=== PATIENT | male | born 1990 | race African-American/Black ===

== ENCOUNTER 2017-11-10 09:33 | Inpatient (IN) ==
[2017-11-10] MEDS ORDERED: ONDANSETRON 4 MG/2 ML VIAL IV STA (10:35)
[2017-11-10] MEDS ORDERED: SODIUM CHLORIDE 0.9% 1,000 ML IV STA (10:35)
[2017-11-10] MEDS ORDERED: MORPHINE 4 MG/1 ML VIAL IV STA (10:35)
[2017-11-10] MEDS ORDERED: ONDANSETRON 4 MG/2 ML VIAL ONE (10:41)
[2017-11-10] MEDS ORDERED: MORPHINE 4 MG/1 ML VIAL ONE (10:41)
[2017-11-10 10:51] LABS: Apearance,Urine Slightly Hazy (Clear); Bacteria,Urine Occasional /HPF (Few); Blood, Urine Negative (Negative); Glucose,Urine (UA) Negative (Negative); Ketones,Urine Negative (Negative); Mucus,Urine Many /LPF (Occasional); Nitrite,Urine Negative (Negative); Protein,Urine 100 MG/DL; Squamous Epithelial Cell,Urine Occasional /HPF (0-10); Urine Color Amber (Yellow); Urine Specific Gravity 1.029 (1.001-1.035); WBC,Urine 5 /HPF (0-6)
[2017-11-10 10:54] LABS: Bilirubin,Urine Small mg/dL (Negative)
[2017-11-10 10:57] LABS: Barbiturates Screen,Urine Negative (Negative); Benzodiazepines Screen,Urine Negative (Negative); Cannabinoid Screen,Urine Negative (Negative); Opiate Screen,Urine Negative (Negative); Phencyclidine Screen,Urine Negative (Negative)
[2017-11-10 10:59] LABS: Basophils # 0.1 10*3/uL (0.0-0.2); Basophils % 0.6 % (0.0-0.8); Eosinophils # 0.1 10*3/uL (0.0-0.87); Eosinophils % 0.8 % (0.00-10.9); Hematocrit 33.5 VOL% (42.0-52.0); Hemoglobin 10.6 GM/DL (14.0-18.0); Immature Granulocytes % 0.5 %; Immature Granulocytes Absolute 0.04 #; Lymphocytes # 0.7 10*3/uL (1.4-4.0); Lymphocytes % 8.6 % (21.2-54.2); Mean Corpuscular HGB Conc 31.6 GM/DL (32-36); Mean Corpuscular Hemoglobin 28 PG (27-34); Mean Corpuscular Volume 88.6 FL (87-102); Mean Platelet Volume 9.5 FL (9.6-12.0); Monocytes # 0.4 10*3/uL (0.11-0.8); Monocytes % 4.8 % (1.7-12.7); Neutrophils # 6.7 10*3/uL (1.4-7.4); Neutrophils % 84.7 % (38.7-73.9); Platelet Count 400 T/CUMM (130-400); Red Blood Count 3.78 MC/CUMM (3.8-5.5); Red Cell Distribution Width 13.5 % (9.3-17.3); White Blood Count 7.9 T/CUMM (4-12)
[2017-11-10 11:25] LABS: Alanine Aminotransferase 33 U/L (16-61); Albumin 2.7 G/DL (3.4-5.0); Alkaline Phosphatase 250 U/L (45-117); Amylase 52 U/L (25-115); Aspartate Amino Transferase 55 U/L (0-37); Blood Urea Nitrogen 4 MG/DL (7-18); Calcium 9.1 MG/DL (8.5-10.1); Glucose 102 MG/DL (74-106); Osmolality,Calculated 269.8 MOS/KG (273-304); Potassium 3.7 MMOL/L (3.5-5.1); Sodium 137 MMOL/L (136-145); Total Protein 8.4 G/DL (6.4-8.3)
[2017-11-10 11:29] LABS: Lactic Acid 2.7 MMOL/L (0.4-2.0)
[2017-11-10] MEDS ORDERED: ZALEPLON 5 MG CAPSULE PO PRN (13:40)
[2017-11-10] MEDS ORDERED: ONDANSETRON 4 MG/2 ML VIAL IV PRN (13:40)
[2017-11-10] MEDS: SODIUM CHLORIDE 0.9% 1,000 ML IV SCH (15:24)
[2017-11-10 15:50] LABS: Lactic Acid 2.2 MMOL/L (0.4-2.0)
[2017-11-10] MEDS: DOCUSATE SODIUM 100 MG CAPSULE PO SCH (21:45)
[2017-11-11] MEDS: SODIUM CHLORIDE 0.9% 1,000 ML IV SCH ×3 (01:18→22:24)
[2017-11-11 05:02] LABS: Basophils # 0.1 10*3/uL (0.0-0.2); Basophils % 0.8 % (0.0-0.8); Eosinophils # 0.3 10*3/uL (0.0-0.87); Eosinophils % 3.8 % (0.00-10.9); Hematocrit 25.5 VOL% (42.0-52.0); Hemoglobin 8.1 GM/DL (14.0-18.0); Immature Granulocytes % 0.5 %; Immature Granulocytes Absolute 0.03 #; Lymphocytes # 0.9 10*3/uL (1.4-4.0); Lymphocytes % 14.1 % (21.2-54.2); Mean Corpuscular HGB Conc 31.8 GM/DL (32-36); Mean Corpuscular Hemoglobin 28 PG (27-34); Mean Corpuscular Volume 88.9 FL (87-102); Mean Platelet Volume 9.4 FL (9.6-12.0); Monocytes # 0.7 10*3/uL (0.11-0.8); Monocytes % 10.6 % (1.7-12.7); Neutrophils # 4.6 10*3/uL (1.4-7.4); Neutrophils % 70.2 % (38.7-73.9); Platelet Count 315 T/CUMM (130-400); Red Blood Count 2.87 MC/CUMM (3.8-5.5); Red Cell Distribution Width 13.5 % (9.3-17.3); White Blood Count 6.6 T/CUMM (4-12)
[2017-11-11 05:29] LABS: Calcium 8.2 MG/DL (8.5-10.1); Osmolality,Calculated 271.7 MOS/KG (273-304); Potassium 3.8 MMOL/L (3.5-5.1)
[2017-11-11] MEDS: PANTOPRAZOLE 40 MG TABLET PO SCH (09:21)
[2017-11-11] MEDS: DOCUSATE SODIUM 100 MG CAPSULE PO SCH ×2 (09:22→21:15)
[2017-11-11 10:52] LABS: INR 1.3; PT Patient Result 13.1 SECS; PT Patient Result 13.2 SECS; Partial Thromboplastin Time 31.1 SECS (0-40)
[2017-11-11] MEDS ORDERED: DIAZEPAM 5 MG TABLET PO ONE (11:10)
[2017-11-11 11:16] LABS: AFP Tumor < 1.3 NG/ML (0-8)
[2017-11-12] MEDS: SODIUM CHLORIDE 0.9% 1,000 ML IV SCH ×2 (08:31→18:32)
[2017-11-12] MEDS: DOCUSATE SODIUM 100 MG CAPSULE PO SCH ×2 (09:09→21:00)
[2017-11-12] MEDS: PANTOPRAZOLE 40 MG TABLET PO SCH (09:09)
[2017-11-13] MEDS: SODIUM CHLORIDE 0.9% 1,000 ML IV SCH (04:12)
[2017-11-13] MEDS: PANTOPRAZOLE 40 MG TABLET PO SCH (08:47)
[2017-11-13] MEDS: DOCUSATE SODIUM 100 MG CAPSULE PO SCH ×2 (08:47→21:09)
[2017-11-13] MEDS ORDERED: cefTRIAXone 1,000 MG in SYRINGE 1 EACH IV ONE (16:19)
[2017-11-14] MEDS: ACETAMINOPHEN 325 MG TABLET PO PRN ×2 (03:40→17:47)
[2017-11-14 06:01] LABS: Basophils % 0.5 % (0.0-0.8); Eosinophils # 0.2 10*3/uL (0.0-0.87); Eosinophils % 2.6 % (0.00-10.9); Hematocrit 25.7 VOL% (42.0-52.0); Hemoglobin 8.5 GM/DL (14.0-18.0); Immature Granulocytes % 0.5 %; Immature Granulocytes Absolute 0.03 #; Lymphocytes # 0.8 10*3/uL (1.4-4.0); Mean Corpuscular HGB Conc 33.1 GM/DL (32-36); Mean Corpuscular Hemoglobin 27 PG (27-34); Mean Corpuscular Volume 82.9 FL (87-102); Mean Platelet Volume 9.5 FL (9.6-12.0); Monocytes # 1.1 10*3/uL (0.11-0.8); Monocytes % 17.2 % (1.7-12.7); NRBC # 0.02 10*3/uL; Neutrophils # 4.1 10*3/uL (1.4-7.4); Neutrophils % 66.2 % (38.7-73.9); Platelet Count 357 T/CUMM (130-400); White Blood Count 6.2 T/CUMM (4-12)
[2017-11-14 06:16] LABS: Albumin 2.2 G/DL (3.4-5.0); Bilirubin,Total 0.7 MG/DL (0.2-1.0); Calcium 8.8 MG/DL (8.5-10.1); Potassium 3.1 MMOL/L (3.5-5.1); Total Protein 7.5 G/DL (6.4-8.3)
[2017-11-14 06:25] LABS: Band Neutrophils 1 % (0-10); Eosinophils 5 % (0-10); Hypochromasia 2+; Lymphocytes 9 % (20-55); Macrocytosis 1+; Platelet Estimate Adequate; Polychromasia Slight; Segmented Neutrophils 72 % (50-85); Target Cells Slight; Total Cells Counted 100
[2017-11-14] MEDS: DOCUSATE SODIUM 100 MG CAPSULE PO SCH ×2 (09:20→21:27)
[2017-11-14] MEDS: PANTOPRAZOLE 40 MG TABLET PO SCH (09:20)
[2017-11-14] MEDS: POTASSIUM CHLORIDE 20 MEQ TABLET PO SCH (21:30)
[2017-11-15 05:44] LABS: Calcium 9.3 MG/DL (8.5-10.1); Osmolality,Calculated 270.8 MOS/KG (273-304); Potassium 3.6 MMOL/L (3.5-5.1)
[2017-11-15] MEDS: DOCUSATE SODIUM 100 MG CAPSULE PO SCH ×2 (09:57→20:32)
[2017-11-15] MEDS: POTASSIUM CHLORIDE 20 MEQ TABLET PO SCH ×2 (09:57→20:32)
[2017-11-15] MEDS: PANTOPRAZOLE 40 MG TABLET PO SCH (09:57)
[2017-11-16] MEDS: PANTOPRAZOLE 40 MG TABLET PO SCH (08:38)
[2017-11-16] MEDS: DOCUSATE SODIUM 100 MG CAPSULE PO SCH ×2 (08:38→20:11)
[2017-11-16] MEDS: POTASSIUM CHLORIDE 20 MEQ TABLET PO SCH (08:39)
[2017-11-16 18:37] LABS: Apearance,Urine CLEAR (Clear); Bilirubin,Urine Negative (Negative); Blood, Urine Negative (Negative); Glucose,Urine (UA) Negative (Negative); Ketones,Urine Negative (Negative); Mucus,Urine Occasional /LPF (Occasional); Nitrite,Urine Negative (Negative); Protein,Urine Negative; RBC,Urine 4 /HPF (0-4); Urine Color Yellow (Yellow); Urine Specific Gravity 1.017 (1.001-1.035); WBC,Urine 1 /HPF (0-6)
[2017-11-16] MEDS: cefTRIAXone 2,000 MG in SYRINGE 1 EACH IV SCH (19:05)
[2017-11-17 06:49] LABS: Basophils % 0.4 % (0.0-0.8); Eosinophils # 0.2 10*3/uL (0.0-0.87); Eosinophils % 2.6 % (0.00-10.9); Hematocrit 25.2 VOL% (42.0-52.0); Hemoglobin 8.3 GM/DL (14.0-18.0); Immature Granulocytes % 0.6 %; Immature Granulocytes Absolute 0.06 #; Lymphocytes # 0.9 10*3/uL (1.4-4.0); Lymphocytes % 10.1 % (21.2-54.2); Mean Corpuscular HGB Conc 32.9 GM/DL (32-36); Mean Corpuscular Hemoglobin 27 PG (27-34); Mean Corpuscular Volume 82.9 FL (87-102); Monocytes # 0.9 10*3/uL (0.11-0.8); NRBC # 0.02 10*3/uL; Neutrophils # 7.1 10*3/uL (1.4-7.4); Neutrophils % 76.3 % (38.7-73.9); Platelet Count 393 T/CUMM (130-400); Red Blood Count 3.04 MC/CUMM (3.8-5.5); Red Cell Distribution Width 14.3 % (9.3-17.3); White Blood Count 9.2 T/CUMM (4-12)
[2017-11-17 07:22] LABS: Calcium 9.1 MG/DL (8.5-10.1); Osmolality,Calculated 262.4 MOS/KG (273-304); Potassium 3.7 MMOL/L (3.5-5.1)
[2017-11-17] MEDS: BISACODYL 5 MG TABLET PO PRN (08:49)
[2017-11-17] MEDS: PANTOPRAZOLE 40 MG TABLET PO SCH (08:49)
[2017-11-17] MEDS: DOCUSATE SODIUM 100 MG CAPSULE PO SCH ×2 (08:50→21:10)
[2017-11-17] MEDS ORDERED: MAGNESIUM SULF RIDER 2 GM in PREMIX 1 EACH IV ONE (11:04)
[2017-11-17] MEDS: cefTRIAXone 2,000 MG in SYRINGE 1 EACH IV SCH (19:18)
[2017-11-18] MEDS: PANTOPRAZOLE 40 MG TABLET PO SCH (09:07)
[2017-11-18] MEDS: DOCUSATE SODIUM 100 MG CAPSULE PO SCH ×2 (10:38→20:41)
[2017-11-18] MEDS: cefTRIAXone 2,000 MG in SYRINGE 1 EACH IV SCH (17:54)
[2017-11-19] MEDS: PANTOPRAZOLE 40 MG TABLET PO SCH (09:22)
[2017-11-19] MEDS: DOCUSATE SODIUM 100 MG CAPSULE PO SCH ×2 (09:22→20:24)
[2017-11-19] MEDS: BISACODYL 5 MG TABLET PO PRN (11:23)
[2017-11-19] MEDS: cefTRIAXone 2,000 MG in SYRINGE 1 EACH IV SCH (18:17)
[2017-11-20 06:08] LABS: Basophils # 0.1 10*3/uL (0.0-0.2); Basophils % 0.6 % (0.0-0.8); Eosinophils # 0.2 10*3/uL (0.0-0.87); Hematocrit 26.2 VOL% (42.0-52.0); Hemoglobin 8.3 GM/DL (14.0-18.0); Immature Granulocytes % 0.8 %; Immature Granulocytes Absolute 0.06 #; Lymphocytes # 1.1 10*3/uL (1.4-4.0); Lymphocytes % 13.6 % (21.2-54.2); Mean Corpuscular HGB Conc 31.7 GM/DL (32-36); Mean Corpuscular Hemoglobin 27 PG (27-34); Mean Corpuscular Volume 85.9 FL (87-102); Mean Platelet Volume 9.7 FL (9.6-12.0); Monocytes # 0.9 10*3/uL (0.11-0.8); Monocytes % 11.5 % (1.7-12.7); Neutrophils # 5.6 10*3/uL (1.4-7.4); Neutrophils % 70.5 % (38.7-73.9); Platelet Count 429 T/CUMM (130-400); Red Blood Count 3.05 MC/CUMM (3.8-5.5); Red Cell Distribution Width 14.4 % (9.3-17.3); White Blood Count 7.9 T/CUMM (4-12)
[2017-11-20 06:30] LABS: Albumin 2.2 G/DL (3.4-5.0); Bilirubin,Total 0.9 MG/DL (0.2-1.0); Calcium 9.3 MG/DL (8.5-10.1); Potassium 3.7 MMOL/L (3.5-5.1); Total Protein 7.8 G/DL (6.4-8.3)
[2017-11-20] MEDS: DOCUSATE SODIUM 100 MG CAPSULE PO SCH ×2 (09:02→21:43)
[2017-11-20] MEDS: PANTOPRAZOLE 40 MG TABLET PO SCH (09:02)
[2017-11-20] MEDS: cefTRIAXone 2,000 MG in SYRINGE 1 EACH IV SCH (17:30)
[2017-11-21] MEDS: PANTOPRAZOLE 40 MG TABLET PO SCH (07:52)
[2017-11-21] MEDS: DOCUSATE SODIUM 100 MG CAPSULE PO SCH (07:52)
[2017-11-21 13:24] VITALS: BP 114/64
== END 2017-11-21 14:15 | disposition home health service (06) | DRG 435 ==
LOC: N.ED 09:33 → N.EDINP 13:40 → SUATTDRO 13:41 → N.4E 14:27
PROVIDERS: ATTEND Internal Medicine Geriatric Medicine

== ENCOUNTER 2017-12-05 09:27 | Inpatient (IN) ==
[2017-12-07 14:37] VITALS: BP 110/68
== END 2017-12-07 13:55 | disposition hospice, home (50) | DRG 240 ==
LOC: N.ED 09:27 → SUATTDRO 12:19 → N.EDINP 12:19 → N.4E 13:28
PROVIDERS: ADMIT Internal Medicine Nephrology; ATTEND Internal Medicine

== ENCOUNTER 2017-12-31 16:25 | Inpatient (IN) ==
[2017-12-31] MEDS ORDERED: chlorproMAZINE 25 MG TABLET PO STA (16:57)
[2017-12-31 17:30] LABS: Albumin 1.7 G/DL (3.4-5.0); Bilirubin,Total 0.9 MG/DL (0.2-1.0); Calcium 8.5 MG/DL (8.5-10.1); Osmolality,Calculated 261.5 MOS/KG (273-304); Potassium 3.4 MMOL/L (3.5-5.1); Total Protein 6.4 G/DL (6.4-8.3)
[2017-12-31 17:44] LABS: Apearance,Urine CLEAR (Clear); Bilirubin,Urine Small mg/dL (Negative); Blood, Urine Negative (Negative); Glucose,Urine (UA) Negative (Negative); Ketones,Urine Negative (Negative); Mucus,Urine Occasional /LPF (Occasional); Nitrite,Urine Negative (Negative); Protein,Urine 30 MG/DL; RBC,Urine 1 /HPF (0-4); Urine Color Amber (Yellow); Urine Specific Gravity 1.024 (1.001-1.035); WBC,Urine 3 /HPF (0-6)
[2017-12-31 17:50] LABS: Barbiturates Screen,Urine Negative (Negative); Benzodiazepines Screen,Urine Negative (Negative); Cannabinoid Screen,Urine Negative (Negative); Opiate Screen,Urine Positive (Negative); Phencyclidine Screen,Urine Negative (Negative)
[2017-12-31 18:07] LABS: Basophils % 0.8 % (0.0-0.8); Hematocrit 24.2 VOL% (42.0-52.0); Hemoglobin 7.7 GM/DL (14.0-18.0); Immature Granulocytes % 1.6 %; Immature Granulocytes Absolute 0.04 #; Lymphocytes # 0.6 10*3/uL (1.4-4.0); Lymphocytes % 24.2 % (21.2-54.2); Mean Corpuscular HGB Conc 31.8 GM/DL (32-36); Mean Corpuscular Hemoglobin 27 PG (27-34); Mean Platelet Volume 9.8 FL (9.6-12.0); Monocytes # 0.9 10*3/uL (0.11-0.8); Monocytes % 36.3 % (1.7-12.7); NRBC # 0.06 10*3/uL; Neutrophils # 0.9 10*3/uL (1.4-7.4); Neutrophils % 37.1 % (38.7-73.9); Platelet Count 255 T/CUMM (130-400); Red Blood Count 2.88 MC/CUMM (3.8-5.5); Red Cell Distribution Width 17.7 % (9.3-17.3); White Blood Count 2.5 T/CUMM (4-12)
[2017-12-31] MEDS ORDERED: PIPERACILLIN/TAZOBACTAM 2,250 MG in SODIUM CHLORIDE 0.9% 100 ML IV STA (18:33)
[2017-12-31] MEDS ORDERED: VANCOMYCIN INJ 1,500 MG in SODIUM CHLORIDE 0.9% 500 ML IV STA (18:33)
[2017-12-31] MEDS ORDERED: SODIUM CHLORIDE 0.9% 1,000 ML IV STA (18:36)
[2017-12-31] MEDS ORDERED: ACETAMINOPHEN 325 MG TABLET PO ONE (18:36)
[2017-12-31] MEDS ORDERED: PIPERACILLIN/TAZOBACTAM 3,375 MG in SODIUM CHLORIDE 0.9% 100 ML IV STA (18:39)
[2017-12-31] MEDS ORDERED: ONDANSETRON 4 MG/2 ML VIAL IV PRN (18:40)
[2017-12-31] MEDS ORDERED: SODIUM CHLORIDE 0.9% 1,000 ML IV PRN ×2 (18:40→18:45)
[2017-12-31] MEDS ORDERED: VANCOMYCIN INJ 1,000 MG in SODIUM CHLORIDE 0.9% 250 ML IV STA (18:41)
[2017-12-31] MEDS ORDERED: ACETAMINOPHEN 650 MG SUPP RECTAL PRN (18:44)
[2017-12-31] MEDS ORDERED: chlorproMAZINE INJ 50 MG in SODIUM CHLORIDE 0.9% 100 ML IV PRN (18:44)
[2017-12-31] MEDS ORDERED: SODIUM CHLORIDE 0.9% 1,650 ML IV ONE (19:43)
[2017-12-31 20:22] LABS: Band Neutrophils 5 % (0-10); Eosinophils 3 % (0-10); Hypochromasia 2+; Lymphocytes 21 % (20-55); Myelocytes 1 %; Nucleated Red Blood Cells 2 (0-5); Segmented Neutrophils 37 % (50-85); Total Cells Counted 100
[2017-12-31 20:23] LABS: Microcytosis 1+; Platelet Estimate Adequate
[2017-12-31] MEDS: SODIUM CHLORIDE 0.9% 1,000 ML IV SCH (20:26)
[2017-12-31] MEDS: CEFEPIME 2,000 MG in SYRINGE 1 EACH IV SCH (21:40)
[2017-12-31] MEDS: POTASSIUM CHLORIDE 20 MEQ TABLET PO SCH (21:40)
[2017-12-31] MEDS: PANTOPRAZOLE 40 MG VIAL IV SCH (21:43)
[2018-01-01] MEDS ORDERED: LORazepam 0.5 MG TABLET PO PRN (00:19)
[2018-01-01] MEDS: POTASSIUM CHLORIDE 20 MEQ TABLET PO SCH ×2 (01:11→05:10)
[2018-01-01] MEDS: SODIUM CHLORIDE 0.9% 1,000 ML IV SCH ×4 (01:16→19:38)
[2018-01-01] MEDS: VANCOMYCIN INJ 1,000 MG in SODIUM CHLORIDE 0.9% 250 ML IV SCH ×3 (03:30→19:38)
[2018-01-01] MEDS ORDERED: PIPERACILLIN/TAZOBACTAM 3,375 MG in SODIUM CHLORIDE 0.9% 100 ML IV SCH (04:00)
[2018-01-01] MEDS: CEFEPIME 2,000 MG in SYRINGE 1 EACH IV SCH ×3 (05:11→21:06)
[2018-01-01 06:35] LABS: Basophils % 0.4 % (0.0-0.8); Eosinophils % 0.4 % (0.00-10.9); Hematocrit 19.1 VOL% (42.0-52.0); Immature Granulocytes % 1.8 %; Immature Granulocytes Absolute 0.05 #; Lymphocytes # 0.7 10*3/uL (1.4-4.0); Lymphocytes % 23.2 % (21.2-54.2); Mean Corpuscular Hemoglobin 27 PG (27-34); Mean Platelet Volume 9.7 FL (9.6-12.0); Monocytes % 33.8 % (1.7-12.7); NRBC # 0.04 10*3/uL; Neutrophils # 1.2 10*3/uL (1.4-7.4); Neutrophils % 40.4 % (38.7-73.9); Platelet Count 250 T/CUMM (130-400); Red Blood Count 2.33 MC/CUMM (3.8-5.5); Red Cell Distribution Width 18.2 % (9.3-17.3); White Blood Count 2.8 T/CUMM (4-12)
[2018-01-01 06:46] LABS: Hemoglobin 6.3 GM/DL (14.0-18.0)
[2018-01-01 06:57] LABS: Albumin 1.5 G/DL (3.4-5.0); Bilirubin,Total 1.3 MG/DL (0.2-1.0); Calcium 7.9 MG/DL (8.5-10.1); Potassium 3.5 MMOL/L (3.5-5.1); Total Protein 5.8 G/DL (6.4-8.3)
[2018-01-01] MEDS ORDERED: SODIUM CHLORIDE 0.9% 1,000 ML IV PRN (07:02)
[2018-01-01 07:05] LABS: Band Neutrophils 21 % (0-10); Lymphocytes 13 % (20-55); Nucleated Red Blood Cells 4 (0-5); Platelet Estimate Normal; Segmented Neutrophils 41 % (50-85); Total Cells Counted 100
[2018-01-01 07:07] LABS: Anisocytosis 1+; Hypochromasia 1+
[2018-01-01 07:08] LABS: Poikilocytosis Slight; Target Cells Few
[2018-01-01] MEDS ORDERED: fentaNYL 25 MCG/HR PATCH TRANSDERM SCH (09:00)
[2018-01-01] MEDS ORDERED: FILGRASTIM-SNDZ 300 MCG/0.5 ML SYRINGE SUBCUT SCH (09:30)
[2018-01-01] MEDS: PANTOPRAZOLE 40 MG VIAL IV SCH ×2 (09:47→21:04)
[2018-01-01] MEDS: MAGNESIUM CHLORIDE 64 MG TABLET PO SCH ×2 (09:47→21:04)
[2018-01-01] MEDS: chlorproMAZINE 25 MG TABLET PO PRN ×2 (09:55→17:29)
[2018-01-01] MEDS: MORPHINE 4 MG/1 ML VIAL IV PRN (17:29)
[2018-01-02] MEDS: VANCOMYCIN INJ 1,000 MG in SODIUM CHLORIDE 0.9% 250 ML IV SCH (03:20)
[2018-01-02] MEDS: SODIUM CHLORIDE 0.9% 1,000 ML IV SCH (03:23)
[2018-01-02] MEDS: CEFEPIME 2,000 MG in SYRINGE 1 EACH IV SCH ×3 (05:12→20:15)
[2018-01-02 05:17] LABS: Basophils % 0.3 % (0.0-0.8); Eosinophils % 0.1 % (0.00-10.9); Hematocrit 24.4 VOL% (42.0-52.0); Hemoglobin 8.2 GM/DL (14.0-18.0); Immature Granulocytes % 6.2 %; Immature Granulocytes Absolute 0.64 #; Lymphocytes # 1.1 10*3/uL (1.4-4.0); Lymphocytes % 10.7 % (21.2-54.2); Mean Corpuscular HGB Conc 33.6 GM/DL (32-36); Mean Corpuscular Hemoglobin 27 PG (27-34); Mean Corpuscular Volume 81.6 FL (87-102); Mean Platelet Volume 9.5 FL (9.6-12.0); Monocytes % 19.6 % (1.7-12.7); NRBC # 0.29 10*3/uL; Neutrophils # 6.5 10*3/uL (1.4-7.4); Neutrophils % 63.1 % (38.7-73.9); Platelet Count 280 T/CUMM (130-400); Red Blood Count 2.99 MC/CUMM (3.8-5.5); Red Cell Distribution Width 17.3 % (9.3-17.3); White Blood Count 10.3 T/CUMM (4-12)
[2018-01-02 05:36] LABS: Albumin 1.5 G/DL (3.4-5.0); Bilirubin,Total 1.4 MG/DL (0.2-1.0); Calcium 8.2 MG/DL (8.5-10.1); Osmolality,Calculated 268.8 MOS/KG (273-304); Total Protein 5.9 G/DL (6.4-8.3)
[2018-01-02 05:38] LABS: Band Neutrophils 15 % (0-10); Eosinophils 1 % (0-10); Hypochromasia 1+; Lymphocytes 18 % (20-55); Nucleated Red Blood Cells 3 (0-5); Platelet Estimate Adequate; Segmented Neutrophils 52 % (50-85); Total Cells Counted 100
[2018-01-02] MEDS ORDERED: MAGNESIUM SULF RIDER 4 GM in PREMIX 1 EACH IV ONE (09:00)
[2018-01-02] MEDS: SODIUM CHLOR 0.45% KCL 20 MEQ 20 MEQ/1,000 ML BAG IV SCH (09:20)
[2018-01-02] MEDS: MAGNESIUM CHLORIDE 64 MG TABLET PO SCH ×2 (09:20→20:17)
[2018-01-02] MEDS: PANTOPRAZOLE 40 MG VIAL IV SCH ×2 (09:20→20:14)
[2018-01-02] MEDS: MORPHINE 4 MG/1 ML VIAL IV PRN ×2 (12:12→20:10)
[2018-01-03] MEDS: SODIUM CHLOR 0.45% KCL 20 MEQ 20 MEQ/1,000 ML BAG IV SCH (02:54)
[2018-01-03 05:13] LABS: Basophils # 0.1 10*3/uL (0.0-0.2); Basophils % 0.4 % (0.0-0.8); Eosinophils % 0.1 % (0.00-10.9); Hematocrit 25.1 VOL% (42.0-52.0); Hemoglobin 8.4 GM/DL (14.0-18.0); Immature Granulocytes % 10.6 %; Immature Granulocytes Absolute 1.79 #; Lymphocytes # 1.2 10*3/uL (1.4-4.0); Lymphocytes % 7.3 % (21.2-54.2); Mean Corpuscular HGB Conc 33.5 GM/DL (32-36); Mean Corpuscular Hemoglobin 28 PG (27-34); Mean Corpuscular Volume 83.4 FL (87-102); Mean Platelet Volume 9.5 FL (9.6-12.0); Monocytes # 2.1 10*3/uL (0.11-0.8); Monocytes % 12.2 % (1.7-12.7); NRBC # 0.12 10*3/uL; Neutrophils # 11.7 10*3/uL (1.4-7.4); Neutrophils % 69.4 % (38.7-73.9); Platelet Count 318 T/CUMM (130-400); Red Blood Count 3.01 MC/CUMM (3.8-5.5); Red Cell Distribution Width 17.7 % (9.3-17.3); White Blood Count 16.8 T/CUMM (4-12)
[2018-01-03] MEDS: CEFEPIME 2,000 MG in SYRINGE 1 EACH IV SCH ×3 (05:28→20:32)
[2018-01-03 05:37] LABS: Osmolality,Calculated 265.1 MOS/KG (273-304)
[2018-01-03 05:38] LABS: Band Neutrophils 17 % (0-10); Calcium 8.1 MG/DL (8.5-10.1); Hypochromasia 1+; Lymphocytes 7 % (20-55); Osmolality,Calculated 265.1 MOS/KG (273-304); Ovalocytes Slight; Platelet Estimate Adequate; Segmented Neutrophils 68 % (50-85); Total Cells Counted 100
[2018-01-03 05:55] LABS: Albumin 1.5 G/DL (3.4-5.0); Bilirubin,Total 1.2 MG/DL (0.2-1.0); Osmolality,Calculated 263.2 MOS/KG (273-304); Total Protein 5.8 G/DL (6.4-8.3)
[2018-01-03] MEDS ORDERED: MAGNESIUM SULF RIDER 2 GM in PREMIX 1 EACH IV ONE (07:33)
[2018-01-03] MEDS: MAGNESIUM CHLORIDE 64 MG TABLET PO SCH ×2 (08:29→20:35)
[2018-01-03] MEDS: PANTOPRAZOLE 40 MG VIAL IV SCH ×2 (08:29→20:30)
[2018-01-03] MEDS ORDERED: fentaNYL 50 MCG/HR PATCH TRANSDERM SCH (10:00)
[2018-01-03] MEDS: POTASSIUM CHLORIDE 20 MEQ TABLET PO SCH (10:34)
[2018-01-03] MEDS: POTASSIUM CHLORIDE RIDER 10 MEQ in PREMIX 1 EACH IV PRN ×5 (12:25→19:29)
[2018-01-04] MEDS: CEFEPIME 2,000 MG in SYRINGE 1 EACH IV SCH (04:06)
[2018-01-04] MEDS: SODIUM CHLOR 0.45% KCL 20 MEQ 20 MEQ/1,000 ML BAG IV SCH (04:09)
[2018-01-04 05:26] LABS: Basophils # 0.1 10*3/uL (0.0-0.2); Basophils % 0.6 % (0.0-0.8); Hematocrit 28.2 VOL% (42.0-52.0); Hemoglobin 9.4 GM/DL (14.0-18.0); Immature Granulocytes % 9.3 %; Immature Granulocytes Absolute 1.99 #; Lymphocytes # 1.2 10*3/uL (1.4-4.0); Lymphocytes % 5.8 % (21.2-54.2); Mean Corpuscular HGB Conc 33.3 GM/DL (32-36); Mean Corpuscular Hemoglobin 28 PG (27-34); Mean Corpuscular Volume 83.2 FL (87-102); Mean Platelet Volume 9.3 FL (9.6-12.0); Monocytes # 2.4 10*3/uL (0.11-0.8); Monocytes % 11.4 % (1.7-12.7); NRBC # 0.09 10*3/uL; Neutrophils # 15.6 10*3/uL (1.4-7.4); Neutrophils % 72.9 % (38.7-73.9); Platelet Count 415 T/CUMM (130-400); Red Blood Count 3.39 MC/CUMM (3.8-5.5); Red Cell Distribution Width 18.3 % (9.3-17.3); White Blood Count 21.4 T/CUMM (4-12)
[2018-01-04 05:37] LABS: Albumin 1.8 G/DL (3.4-5.0); Bilirubin,Total 1.3 MG/DL (0.2-1.0); Calcium 8.6 MG/DL (8.5-10.1); Osmolality,Calculated 262.4 MOS/KG (273-304); Potassium 4.2 MMOL/L (3.5-5.1); Total Protein 6.4 G/DL (6.4-8.3)
[2018-01-04 06:00] LABS: Band Neutrophils 9 % (0-10); Lymphocytes 18 % (20-55); Platelet Estimate Normal; Segmented Neutrophils 68 % (50-85); Total Cells Counted 100
[2018-01-04] MEDS ORDERED: MAGNESIUM SULF RIDER 4 GM in PREMIX 1 EACH IV ONE (07:39)
[2018-01-04] MEDS: MAGNESIUM CHLORIDE 64 MG TABLET PO SCH (09:55)
[2018-01-04] MEDS: POTASSIUM CHLORIDE 20 MEQ TABLET PO SCH (09:55)
[2018-01-04] MEDS: PANTOPRAZOLE 40 MG VIAL IV SCH (09:56)
[2018-01-04 15:57] VITALS: BP 121/74
== END 2018-01-04 15:15 | disposition home health service (06) | DRG 660 ==
LOC: N.ED 16:25 → N.EDINP 18:39 → SUATTDRO 18:39 → N.4E 19:40
PROVIDERS: ADMIT Internal Medicine; ATTEND Hospitalist

== ENCOUNTER 2018-02-03 12:55 | Observation (INO) ==
[2018-02-03] MEDS ORDERED: SODIUM CHLORIDE 0.9% 500 ML IV STA (14:07)
[2018-02-03 14:32] LABS: Eosinophils % 0.4 % (0.00-10.9); Hematocrit 21.4 VOL% (42.0-52.0); Hemoglobin 7.2 GM/DL (14.0-18.0); Immature Granulocytes % 1.2 %; Immature Granulocytes Absolute 0.09 #; Lymphocytes # 0.3 10*3/uL (1.4-4.0); Lymphocytes % 3.5 % (21.2-54.2); Mean Corpuscular HGB Conc 33.6 GM/DL (32-36); Mean Corpuscular Hemoglobin 29 PG (27-34); Mean Corpuscular Volume 85.9 FL (87-102); Mean Platelet Volume 10.3 FL (9.6-12.0); Monocytes # 0.7 10*3/uL (0.11-0.8); Monocytes % 8.5 % (1.7-12.7); Neutrophils # 6.6 10*3/uL (1.4-7.4); Neutrophils % 86.4 % (38.7-73.9); Platelet Count 111 T/CUMM (130-400); Red Blood Count 2.49 MC/CUMM (3.8-5.5); Red Cell Distribution Width 20.7 % (9.3-17.3); White Blood Count 7.6 T/CUMM (4-12)
[2018-02-03 14:39] LABS: INR 1.4
[2018-02-03 14:51] LABS: Lactic Acid 2.7 MMOL/L (0.4-2.0)
[2018-02-03 14:52] LABS: Alanine Aminotransferase 45 U/L (16-61); Albumin 1.5 G/DL (3.4-5.0); Alkaline Phosphatase 374 U/L (45-117); Aspartate Amino Transferase 85 U/L (0-37); Blood Urea Nitrogen 9 MG/DL (7-18); Glucose 82 MG/DL (74-106); Osmolality,Calculated 257.8 MOS/KG (273-304); Potassium 4.2 MMOL/L (3.5-5.1); Sodium 130 MMOL/L (136-145); Total Protein 5.8 G/DL (6.4-8.3)
[2018-02-03 15:00] LABS: Band Neutrophils 36 % (0-10); Lymphocytes 2 % (20-55); Segmented Neutrophils 59 % (50-85); Total Cells Counted 100
[2018-02-03 15:01] LABS: Platelet Estimate Normal
[2018-02-03 15:02] LABS: Burr Cells 1+; Hypochromasia 2+
[2018-02-03 15:03] LABS: Anisocytosis 1+
[2018-02-03 15:04] LABS: Polychromasia Slight; Target Cells Few
[2018-02-03] MEDS ORDERED: ONDANSETRON 4 MG/2 ML VIAL IV PRN (17:27)
[2018-02-03] MEDS ORDERED: SODIUM CHLORIDE 0.9% 1,000 ML IV PRN (17:27)
[2018-02-03] MEDS ORDERED: diphenhydrAMINE CAP 25 MG CAPSULE PO PRN (17:27)
[2018-02-03] MEDS ORDERED: SODIUM CHLORIDE 0.9% 1,000 ML IV SCH (17:30)
[2018-02-03] MEDS ORDERED: ONDANSETRON 4 MG TABLET PO PRN (17:33)
[2018-02-03] MEDS ORDERED: ACETAMINOPHEN 325 MG TABLET PO PRN (17:33)
[2018-02-03] MEDS ORDERED: DOCUSATE SODIUM 100 MG CAPSULE PO PRN (17:33)
[2018-02-03] MEDS ORDERED: chlorproMAZINE 25 MG TABLET PO PRN (17:33)
[2018-02-03] MEDS ORDERED: LORazepam 0.5 MG TABLET PO PRN (17:33)
[2018-02-03] MEDS ORDERED: BISACODYL 5 MG TABLET PO PRN (17:33)
[2018-02-03] MEDS: MAGNESIUM CHLORIDE 64 MG TABLET PO SCH (20:25)
[2018-02-03] MEDS: POTASSIUM CHLORIDE 20 MEQ TABLET PO SCH (20:25)
[2018-02-03 20:48] LABS: Lactic Acid 2.1 MMOL/L (0.4-2.0)
[2018-02-04] MEDS ORDERED: diphenhydrAMINE CAP 25 MG CAPSULE ONE (00:16)
[2018-02-04 06:29] LABS: Apearance,Urine CLEAR (Clear); Bilirubin,Urine Negative (Negative); Blood, Urine Negative (Negative); Glucose,Urine (UA) Negative (Negative); Ketones,Urine Negative (Negative); Mucus,Urine Occasional /LPF (Occasional); Nitrite,Urine Negative (Negative); Protein,Urine Negative; RBC,Urine <1 /HPF (0-4); Squamous Epithelial Cell,Urine Occasional /HPF (0-10); Urine Color Amber (Yellow); Urine Specific Gravity 1.017 (1.001-1.035); WBC,Urine <1 /HPF (0-6)
[2018-02-04 07:43] LABS: Basophils % 0.1 % (0.0-0.8); Eosinophils % 0.2 % (0.00-10.9); Hematocrit 23.8 VOL% (42.0-52.0); Immature Granulocytes % 1.6 %; Immature Granulocytes Absolute 0.13 #; Lymphocytes # 0.2 10*3/uL (1.4-4.0); Lymphocytes % 2.5 % (21.2-54.2); Mean Corpuscular HGB Conc 33.6 GM/DL (32-36); Mean Corpuscular Hemoglobin 29 PG (27-34); Mean Platelet Volume 10.3 FL (9.6-12.0); Monocytes # 0.7 10*3/uL (0.11-0.8); Monocytes % 8.9 % (1.7-12.7); Neutrophils # 7.2 10*3/uL (1.4-7.4); Neutrophils % 86.7 % (38.7-73.9); Platelet Count 133 T/CUMM (130-400); White Blood Count 8.3 T/CUMM (4-12)
[2018-02-04 08:15] LABS: Albumin 1.4 G/DL (3.4-5.0); Bilirubin,Total 2.6 MG/DL (0.2-1.0); Calcium 8.3 MG/DL (8.5-10.1); Osmolality,Calculated 257.7 MOS/KG (273-304); Potassium 3.6 MMOL/L (3.5-5.1); Total Protein 5.3 G/DL (6.4-8.3)
[2018-02-04 08:32] LABS: Anisocytosis 1+; Band Neutrophils 12 % (0-10); Hypochromasia 1+; Lymphocytes 1 % (20-55); Metamyelocytes 1 %; Microcytosis 1+; Nucleated Red Blood Cells 1 (0-5); Segmented Neutrophils 82 % (50-85); Total Cells Counted 100
[2018-02-04] MEDS ORDERED: PANTOPRAZOLE 40 MG TABLET PO SCH (09:00)
[2018-02-04] MEDS: POTASSIUM CHLORIDE 20 MEQ TABLET PO SCH (09:20)
[2018-02-04] MEDS: MAGNESIUM CHLORIDE 64 MG TABLET PO SCH (09:20)
[2018-02-04 09:44] VITALS: BP 107/46
[2018-02-04] MEDS ORDERED: MAGNESIUM SULF RIDER 4 GM in PREMIX 1 EACH IV ONE (11:00)
[2018-02-06] MEDS ORDERED: fentaNYL 50 MCG/HR PATCH TRANSDERM SCH (09:00)
== END 2018-02-04 11:20 | disposition home or self-care (01) ==
LOC: N.ED 12:55 → N.EDINP 12:55 → N.4E 18:05
PROVIDERS: ADMIT Internal Medicine; ATTEND Internal Medicine